=== PATIENT | female | born 1995 | race Caucasian/White ===

== ENCOUNTER 2018-08-09 00:05 | Day surgery (SDC) | payer OTHER ==
[~2018-08-09] VITALS: Ht 170.2 cm; Wt 66.7 kg
[~2018-08-09 00:05] MED LIST: MULT-1381 PO; NORE1TAB6 PO
[2018-08-09] MEDS ORDERED: LIDOCAINE/SOD BICARB 8.4% SYR ID ONE (09:45)
[2018-08-09] MEDS ORDERED: FAMOTIDINE 20 MG TAB PO ONE (09:45)
[2018-08-09] MEDS ORDERED: NORMOSOL R SOLN(*) 1000 ML BAG 1,000 ML IV PRN (09:45)
[2018-08-09] MEDS ORDERED: MIDAZOLAM 2 MG/2 ML VIAL IVP PRN (09:45)
[2018-08-09 11:06] VITALS: BP 125/77
[2018-08-09 11:32] LABS: PLATELET COUNT, AUTOMATED 274 K/uL (150-450)
[2018-08-09] MEDS ORDERED: PROPOFOL EMUL(*) 10MG/ML 20 ML 20 ML ONE (11:57)
[2018-08-09] MEDS ORDERED: ONDANSETRON 4 MG/2 ML VIAL ONE (11:57)
[2018-08-09] MEDS ORDERED: DEXAMETHASONE SOD PHOS 10MG/ML ONE (11:57)
[2018-08-09] MEDS ORDERED: ROPIVACAINE 0.2% 20 ML VIAL ONE ×2 (12:00→13:02)
[2018-08-09] MEDS ORDERED: HYDROmorphone HCL 2 MG/ML SDV ONE (12:36)
[2018-08-09] MEDS ORDERED: SUGAMMADEX SOD 200 MG/2 ML SDV ONE (13:00)
[2018-08-09] MEDS ORDERED: NS 0.9% 20 ML SDV 40 ML ONE (13:02)
[2018-08-09] MEDS ORDERED: LR(*) 1000 ML BAG 1,000 ML IV ONE (13:23)
[2018-08-09] MEDS ORDERED: APAP/HYDROCODONE 325/5 TAB PO PRN (13:25)
--- NOTE | 2018-08-09 13:30 | Post Operative Note ---
Operative Note - PRE PLANNING ADVISOR Operative Day Date: Aug 09, 2018 Time: 13:24 Physicians Surgeon: Jonna Anesthesia: GETA Diagnosis Pre-Op Diagnosis: Dysmenorrhea LLQ abdominal pain Post-Op Diagnosis: same Procedure Findings: suspect endometriosis Procedure(s): L-scope diagnostic resection biopsy pelvic peritoneum Fulguration of endometriosis Specimen Removed:(Maybe N/A): left US ligament peritoneum Complications: none [id number] Fluids Fluids: 1200 ml Estimated Blood Loss: minimal Dictated Date OP Note Dictated: Aug 09, 2018 Time OP Note Dictated: 13:25 Copies to: DARIN ROYAL MD ; DARIN ROYAL MD Aug 09, 2018 13:30
[2018-08-09] MEDS ORDERED: LOR5/325 PO (13:33)
[2018-08-09] MEDS ORDERED: IBUP800T37 PO (13:33)
--- NOTE | 2018-08-09 13:35 | Short(Outpt) Discharge Summary ---
Discharge Summary Reason for Hosp/Final Diag: (1) Dysmenorrhea (2) LLQ abdominal pain Hospital Course & Plan: s/p Laparoscopic biopsy and fulguration Departure Discharge to: Home, Self Care Discharge Instructions Home Meds Active Scripts Hydrocodone Bit/Acetaminophen (HYDROCODON-ACETAMINOPHEN 5-325) 1 Each Tablet, 1- 2 EACH PO Q6H PRN for PAIN, #14 TAB 0 Refills Prov:DARIN ROYAL MD 08/09/18 Reported Medications Multivitamin (ONCE DAILY) 1 Each Tablet, 1 EACH PO QDAY 08/02/18 Norethindrone-Ethinyl Estrad (ALYACEN) 1 Each Tablet, 1 EACH PO QDAY 08/02/18 Follow up Referrals: INTER COM SERVICER - In Two Weeks @ [facility] with DARIN ROYAL MD Diet: Regular Activity: As Tolerated, No Heavy Lifting, No Exertion Copies to: DARIN ROYAL MD ; DARIN ROYAL MD Aug 09, 2018 13:35
[2018-08-09] MEDS ORDERED: fentaNYL CITR 100 MCG/2 ML AMP ONE ×2 (13:45→14:14)
[2018-08-09 14:30] VITALS: BP 126/77
--- NOTE | 2018-08-09 14:30 | NUR ---
1430- PT BROUGHT TO BAY 7 VIA CART, PT IS A/O X 3, SHE IS COOPERATIVE WITH STAFF AND CARES, PT IS ON 2LPM VIA NC AND MAINTAINING SATS, RESPIRATIONS AND AIRWAY, VSS, PT REPORTS 2/10 ABDOMINAL PAIN 1433- DECREASED O2 TO 1LPM VIA NC 1435- FAMILY AT BEDSIDE 1440- DECREASED O2 TO 0.5LPM VIA NC, PT IS MAINTAINING SATS, RESPIRATIONS AND AIRWAY, PT TOLERATING CHEESE CRACKERS AND WATER
[2018-08-09 14:45] VITALS: BP 137/87
--- NOTE | 2018-08-09 14:45 | NUR ---
1445- PT REPOSITIONED DUE TO SIDE ACHE, PT STILL WORKING ON CHEESE AND CRACKERS, FAMILY AT BEDSIDE
[2018-08-09 15:00] VITALS: BP 123/84
[2018-08-09] MEDS ORDERED: APAP/HYDROCODONE 325/5 TAB PO ONE (15:00)
--- NOTE | 2018-08-09 15:03 | NUR ---
1503- PT PLACED ON RA
--- NOTE | 2018-08-09 15:10 | NUR ---
1510- PT SATS DROPPED TO 86% ON RA, DEEP BREATHING AND SATS SHARRI TO 95%, PT WAS REPOSITIONING IN BED AND HOLDING BREATHE D/T SIDE ACHE, EDUCATION ON DEEP BREATHING 1511- PO ANALGESIC GIVEN SEE EMAR FOR DETAILS
--- NOTE | 2018-08-09 15:25 | NUR ---
1525- SL IV 1528- ORTHO STATIC VSS, PT REPORTS MILD LIGHTHEADEDNESS, EDUCATED ON CHANGING POSITION SLOWLY 1530- PT AMBULATORY TO RESTROOM, NOTED VAGINAL BLEEDING UPON STANDING, WIPES USED, MINIMAL BLOOD NOTED 1541- PT BACK FROM RESTROOM, MOTHER REPORTS MINIMAL VAGINAL BLEEDING, PT HAS MESH UNDERWEAR AND PAD IN PLACE, EDUCATED FAMILY AND PT ON VAGINALLY BLEEDING AND WHEN TO BE RE-EVALUATED, PT AND FAMILY VERBALIZED UNDERSTANDING, RE-CHECKED O2 91% ON RA 1547- REVIEWED D/C INSTRUCTIONS WITH FAMILY AND PT 1550- D/C IV WITH CATH INTACT, PRESSURE DRESSING APPLIED WITH GAUZE AND COBAND 1555- PT WHEELCHAIRED TO ER ENTRANCE, ACCOMPANIED BY FAMILY AND SOLIS FRIEDMAN
[2018-08-09 15:26] VITALS: BP 134/92
[2018-08-09 15:29] VITALS: BP 145/81
--- NOTE | 2018-08-09 15:41 | NUR ---
1541- NOTED PT TO BE TEARY EYED, PT REPORTS "I DON'T EVEN KNOW WHY I'M CRYING" ADVISED PT IT IS OK TO BE EMOTIONAL. PT GETTING DRESSED
--- NOTE | 2018-08-09 16:14 | OPERATIVE REPORT 1 ---
EVENT DATE: August 09, 2018 SURGEON: Felipe Coyle MD ANESTHESIOLOGIST: Zohaib Loya MD ANESTHESIA: General endotracheal. PREOPERATIVE DIAGNOSES 1. Dysmenorrhea. 2. Left lower quadrant abdominal pain. POSTOPERATIVE DIAGNOSES 1. Dysmenorrhea. 2. Left lower quadrant abdominal pain. PROCEDURES PERFORMED 1. Diagnostic laparoscopy. 2. Resection of pelvic peritoneal endometrium. 3. Fulguration of pelvic peritoneal endometriosis. ESTIMATED BLOOD LOSS Minimal. FLUIDS IV crystalloid. URINE OUTPUT Drained at prep, not measured. DESCRIPTION OF PROCEDURE The patient was brought to the operating room, placed on the operating table. She was placed under general endotracheal anesthesia by Dr. Loya and then prepped and draped in the usual sterile fashion. Using a weighted speculum, the cervix was grasped on the anterior lip with a single-toothed tenaculum. It was carefully sounded to a depth of 6 cm anteverted. A size 6 TIRSO uterine manipulator was selected and assembled. The cervix was dilated to accommodate, and it was passed through the cervix into the uterus, bulb inflated, and secured. All other instruments were then removed. The legs were brought back to the supine position. Gloves were changed. The umbilicus was then infiltrated with 0.2% Naropin, and a 5 mm stab incision was made. The anterior abdominal wall was elevated confirming the negative pressure before insufflation, and no injuries had occurred during this time. A Veress needle was passed through this incision into the abdomen. Pneumoperitoneum was created to an intra-abdominal pressure of 20 mmHg. Veress needle was then removed, and a 5 mm bladeless trocar was passed through the incision into the abdomen under direct visualization with the scope. Two additional 5 mm ports were placed in the left lower quadrant and the suprapubic location under similar technique and without incident. The abdomen and pelvis were surveyed, and there were normal- appearing bilateral tubes and ovaries, normal-appearing uterus. There was hyperemia noted in the left uterosacral ligament and posterior cul-de-sac compared to the right. There was a faint vesicular type probable endometriosis in the left lower quadrant along the uterosacral ligament in that location and what appeared to be formation of a [place] window in the posterior cul-de-sac. The resectional biopsy was performed along the left uterosacral ligament, and fulguration was in the same location and in the posterior cul-de-sac. The resection of the endometriosis was performed by grasping the peritoneum in that location, putting it on stretch, and resecting it with the Endoshears. Monopolar cautery was used for the fulguration, and care was taken to identify where the ureters were located and to avoid electrocautery in those locations. Upon completion, the pelvis was copiously irrigated. No visible complications. Therefore, the pneumoperitoneum was suctioned out. All instruments were removed from the abdomen and pelvis. Trocars were removed. Skin incisions were repaired with 4-0 Monocryl simple subdermal and covered with Dermabond skin adhesive. She tolerated the procedure well. Sponge, lap, needle, and instrument counts were all correct times three. CHACHA
== END 2018-08-09 14:30 | disposition home or self-care (01) ==
LOC: OR 00:05
PROVIDERS: ATTEND Obstetrics & Gynecology
DX: N94.6 Dysmenorrhea, unspecified (principal); R10.32 Left lower quadrant pain
CPT/HCPCS: 36415; 58662; 84703; 85025; 88307; J1100; J1170; J2250; J2405; J2704; J2795; J3010; J7050